=== PATIENT | male | born 1980 | race Caucasian/White ===

== ENCOUNTER 2016-11-08 21:34 | Emergency (ER) | payer OTHER ==
--- NOTE | 2016-11-08 21:50 | UCPHY ---
H & P Patient Type: Established HPI/ROS: CHIEF COMPLAINT: Cough, difficulty breathing. HISTORY OF PRESENT ILLNESS: The patient is a 35-year-old male with a history of asthma presenting with dry cough and difficulty breathing, for the past 3 days. He has had cold symptoms for the past few days including rhinorrhea, body aches, some mild change in his voice, low-grade fever, and headache and believes these exacerbated his asthma. He has had similar episodes before but never needed hospitalization. Most recent, this past fall, responded well to prednisone as well, though he does not take a steroid inhaler. Furthermore he has already ran out of that albuterol inhaler as of 1 month ago. He does note having mild myalgia but this is not as severe as the headache, which is only moderate. He admits to recent sick contact as his and kids are all sick with viral illnesses - though of note, is that they can mail it ill after him. He denies vomiting, or other complaints. REVIEW OF SYSTEMS: Constitutional: As above. Eyes: No discharge. ENT: No sore throat. Cardiovascular: No chest pain, no palpitations. Respiratory: As above. Gastrointestinal: No nausea vomiting or diarrhea. No abdominal pain. Neurological: Mild headache. Past Medical/Surgical History: Asthma. Social History: Nonsmoker. Smoking Status: Never smoked Physical Exam: General Appearance: Alert, no distress. Afebrile. Raspy but not hoarse voice No respiratory distress - able to speak in full sentences. Eyes: Pupils equal and round no pallor or injection. No icterus ENT, Mouth: Mucous membranes moist. Pharynx not erythematous and without exudate. TM Clear. Neck: No adenopathy. Supple. No JVD. Trachea in midline. Larynx is nontender. Respiratory: There are no retractions, lungs show mild sensation of a wheeze but distinctly prolonged exhalation phase Cardiovascular: Regular rate and rhythm, without murmur Abdomen: Soft and nontender, no masses, bowel sounds normal. Femoral pulses equal. Neurological: Ox3. No motor weakness. Sensation intact. Gait nl. Skin: Warm and dry, no rashes. Musculoskeletal: No joint swelling. Extremities: No edema. Psychiatric: Normal affect Constitutional: Initial Vital Signs Heart Rate 82 11/08/16 21:58 Respiratory Rate 16 11/08/16 21:58 Blood Pressure 122/78 H 11/08/16 21:58 O2 Sat (%) 93 11/08/16 21:58 O2 Delivery Mode Room Air Allergies/Adverse Reactions: No Known Allergies Allergy (Verified 11/08/16 21:56) Home Medications: Medication Instructions Recorded Albuterol 08/03/16 Albuterol [Proventil Inhaler HFA 2 puffs IH QID #1 mdi 11/08/16 (*)] Albuterol [Proventil Neb] 3 ml IH Q4 PRN #25 deyvial 11/08/16 predniSONE [Prednisone] 30 mg PO BID #30 tablet 11/08/16 Medical Decision Making ED Course/Re-evaluation: On initial exam he seemed to have delayed exhalation no only some mild wheeze - thus he was given a DuoNeb here He is given a treatment of DuoNeb - when I checked him thereafter he was markedly improved with virtually clear breath sounds and good inhalation as well as exhalation ratios Differential Diagnosis: ED differential includes: Acute asthma exacerbation, status asthmaticus, URI, bronchitis, pneumonia - Data Points Laboratory Results: 11/08/16 22:00 Influenza Typ A,B (DFA) NEGATIVE FOR FLU (NEGATIVE) Medications Given: Discontinued Medications Albuterol Sulfate (Proventil Inh Prepack) 1 mdi TAKEHOME EDNOW ONE Stop: 11/08/16 22:44 Last Admin: 11/08/16 22:52 Dose: 1 mdi Albuterol/Ipratropium (Duoneb) 3 ml IH EDNOW ONE Stop: 11/08/16 21:55 Last Admin: 11/08/16 22:00 Dose: 3 ml Prednisone (Prednisone) 60 mg PO EDNOW ONE Stop: 11/08/16 22:44 Last Admin: 11/08/16 22:54 Dose: 60 mg Departure - Departure Disposition: Home, Routine, Self-Care Clinical Impression: Acute asthma Condition: Good Instructions: Asthma (ED) Additional Instructions: Use inhaler as instructed Take Prednisone as prescribed. Return to Urgent Care or the emergency department for serious worsening of condition. Referrals: NONE *PRIMARY CARE P,. [Primary Care Provider] - As per Instructions Prescriptions: predniSONE [Prednisone] 30 mg PO BID #30 tablet Albuterol [Proventil Inhaler HFA (*)] 2 puffs IH QID #1 mdi Albuterol [Proventil Neb] 3 ml IH Q4 PRN #25 deyvial PRN Reason: Wheezing - PQRS PQRS Measurement: Not applicable Report Scribed for: Sebastian Lan Report Scribed by: Nelson Guerra Date of Report: 11/08/16 Time of Report: 21:50
[2016-11-08] MEDS ORDERED: IPRATROPIUM/ALBUTEROL 3 ML DEYVIAL ONE (21:52)
[2016-11-08] MEDS ORDERED: IPRATROPIUM/ALBUTEROL 3 ML DEYVIAL IH ONE (21:54)
[2016-11-08 22:06] VITALS: BP 122/78; PULSE 82; RESP 16; O2SAT 93
[2016-11-08] MEDS ORDERED: ALBUTEROL INH PREPACK MDI TAKEHOME ONE (22:43)
[2016-11-08] MEDS ORDERED: predniSONE 20 MG TAB PO ONE (22:43)
== END 2016-11-08 23:14 | disposition home or self-care (01) ==
LOC: CED 21:34
DX: J45.909 Unspecified asthma, uncomplicated (principal)
CPT/HCPCS: 87400-PO; 99214-PO; G0463-PO

== ENCOUNTER 2018-11-16 01:56 | Emergency (ER) | payer OTHER ==
[2018-11-16] MEDS ORDERED: BENZONATATE 100 MG CAP PO ONE (02:20)
--- NOTE | 2018-11-16 02:21 | EDPHY ---
H & P Stated Complaint: Fever, increased use of inhalers, and nebs, mucous Time Seen by Provider: 11/16/18 02:00 HPI/ROS: CHIEF COMPLAINT: Fever then cough for 4 days HISTORY OF PRESENT ILLNESS: This is a 37-year-old male who has had lifelong asthma. The last time he had use of steroids was approximately 6 months ago. He has never been intubated for these asthma. His condition is not so bad that he takes his inhaler every day. Further, he does not have an emergency prescription for prednisone at home when he gets ill. Evidently, right after [place] the 4 children became sick in ill with an upper respiratory type infection 1 after another. Everyone in the household has been immunized for the seasonal influenza. His turn started this past Wednesday night. Those 1st 2 days he had fevers as high as 104 associated with body aches and myalgias, though there is really no headache. There was also cough, which was dry.. As he felt a sense of heaviness in the chest and difficulty getting air out he started using inhaler more than usual, again over the last 3 days. His last use of his nebulizer was at 11:30 p.m. Some 3 hr ago. As typical for him this medication has kept him awake. Thus, as he is scheduled for an air flight tomorrow at 6:00 p.m. to [place] he was reticent to go on this trip if indeed he did have pneumonia. Thus he came in for evaluation as he was not sleeping in the 1st place. He is having no pain, as the body aches from this weekend have subsided.. There is no earache or sore throat. He is having no shaking chills or rigors. REVIEW OF SYSTEMS: Constitutional: Where he did have fever for the 1st 2 days he has had none since. Eyes: No discharge ENT: No sore throat. Cardiovascular: No chest pain, no palpitations. Respiratory: The cough has been dry. He has really had a sense of wheezing. Just some shortness of breath Gastrointestinal: No Nausea, vomiting, abdominla pain or diarrhea Genitourinary: No dysuria Musculoskeletal: No back pain. Skin: No rashes. Neurological: No headache. A 10 system review of systems was performed and is negative except for the noted findings in the HPI. Source: Patient Exam Limitations: No limitations - Personal History Current Tetanus/Diphtheria Vaccine: Unsure Current Tetanus Diphtheria and Acellular Pertussis (TDAP): Unsure Tetanus Vaccine Date: unsure - Medical/Surgical History Hx Asthma: Yes Hx Chronic Respiratory Disease: No Hx Diabetes: No Hx Cardiac Disease: No Hx Renal Disease: No Hx Cirrhosis: No Hx Alcoholism: No Hx HIV/AIDS: No Hx Splenectomy or Spleen Trauma: No Other PMH: Asthma, Right scope shoulder surgery. - Social History Smoking Status: Never smoked Alcohol Use: None Drug Use: None - Physical Exam Exam: General Appearance: Alert, no distress. Afebrile. Normal phonation. No respiratory distress. Speaking full sentences and several in a row Eyes: Pupils equal and round no pallor or injection. No icterus ENT, Mouth: Mucous membranes moist Pharynx without erythema, there is 1 small exudative type material present in a crypt on the left tonsil. TM Clear. Neck: No adenopathy. Supple. No JVD. Trachea in midline. Respiratory: I do not hear any wheezing. There is some diminished breath sounds prescribed on the left with some scant rales Cardiovascular: Regular rate and rhythm. Abdomen: Soft and nontender, no masses, bowel sounds normal. Femoral pulses equal. Neurological: Ox3. No motor weakness. Sensation intact. Gait nl. Skin: Warm and dry, no rashes. Musculoskeletal: No joint swelling. Extremities: No edema. Homans sign negative. No cords. Psychiatric: Normal affect. Patient is oriented X 3. There is no agitation Constitutional: Initial Vital Signs Temperature (C) 36.8 C 11/16/18 02:04 Heart Rate 72 11/16/18 02:04 Respiratory Rate 16 11/16/18 02:04 Blood Pressure 129/82 H 11/16/18 02:04 O2 Sat (%) 95 11/16/18 02:04 O2 Delivery Mode Room Air Allergies/Adverse Reactions: No Known Allergies Allergy (Verified 11/16/18 02:18) Home Medications: Medication Instructions Recorded Albuterol [Proventil Inhaler HFA 2 puffs IH QID #1 mdi 11/08/16 (*)] Albuterol [Proventil Neb] 3 ml IH Q4 PRN #25 deyvial 11/08/16 Benzonatate 200 mg PO TID PRN #28 capsule 11/16/18 predniSONE [Prednisone] 30 mg PO BID #30 tablet 11/16/18 Medical Decision Making - Diagnostics Imaging Results: Chest x-ray: Two view chest. Interpreted by me, contemporaneously. Films viewed by me on the PACS system. Normal mediastinum. Normal lung [place]. No effusions. Normal chest. ED Course/Re-evaluation: On clinical exam, as he had just taken his nebulizer some 3 hr ago, he did not show any evidence of air hunger or significant bronchospasm. There is certainly diminished air breath sounds at both bases. Thereby did not merit a nebulizer treatment here. I was able to verify that he does have a nebulizer at home as well as an adequate supply of Proventil for home use. He was initially given dose of 200 mg benzonatate prior to the x-ray. After the chest x-ray which did not show pneumonia he was eager to go on prednisone. We had a lengthy discussion regarding the side effects of prednisone in the risks involved. He states that he gets great relief from this and is anxious to get started on this. Thus he was given prednisone 60 mg p. O. here. Differential Diagnosis: Diagnostic considerations include, but are not limited to, the following: URI, sinusitis, pharyngitis, otitis media, pneumonia, allergy, influenza, strep throat. - Data Points Medications Given: Discontinued Medications Benzonatate (Tessalon Pearles) 200 mg PO EDNOW ONE Stop: 11/16/18 02:21 Last Admin: 11/16/18 02:24 Dose: 200 mg Prednisone (Prednisone) 60 mg PO EDNOW ONE Stop: 11/16/18 03:01 Last Admin: 11/16/18 03:03 Dose: 60 mg Departure - Departure Disposition: Home, Routine, Self-Care Clinical Impression: Influenza, Asthma attack Condition: Good Additional Instructions: For the COUGH: Delsym DM 4 tsp twice a day (OTC) or Benzonatate (Rx) for the cough, no both This illness probably began is influenza. You are still contagious until 7 days after the onset of the influenza, granted less so day by day. I recommend that she do not fly tomorrow. Begin the prednisone tomorrow as we started the dose here tonight Tomorrow, please call [phone] get the final reading on your x-ray, around noon. Referrals: Patient,NotPresent [Primary Care Provider] - As per Instructions Stand Alone Forms: Airline Excuse Prescriptions: Benzonatate 200 mg PO TID PRN #28 capsule PRN Reason: Cough predniSONE [Prednisone] 30 mg PO BID #30 tablet
[2018-11-16] MEDS ORDERED: predniSONE 20 MG TAB PO ONE (03:00)
[2018-11-16 03:06] VITALS: BP 130/78
== END 2018-11-16 03:15 | disposition home or self-care (01) ==
LOC: CED 01:56
DX: J11.1 Influenza due to unidentified influenza virus with other respiratory manifestations (principal); J45.909 Unspecified asthma, uncomplicated
CPT/HCPCS: 71046-PO; 99284-ER; J7512